=== PATIENT | female | born 1990 ===

== ENCOUNTER 2017-04-14 14:59 | Emergency (ER) | payer MEDICAID ==
--- NOTE | 2017-04-14 15:36 | EDPHY ---
Mental Health General Narrative: This chart was entered in error. (Kathleen Landa) This chart was entered in error. I have had no contact with this patient. ( Cecelia Marinelli) Departure - Departure Disposition: Law Enforcement/Court/Detention Referrals: Patient,NotPresent [Primary Care Provider] - As per Instructions
== END 2017-04-14 15:01 | disposition left against medical advice (07) ==
DX: Z53.21 Procedure and treatment not carried out due to patient leaving prior to being seen by health care provider (principal)